=== PATIENT | male | born 1975 | race Caucasian/White ===

== ENCOUNTER 2020-06-13 10:29 | Emergency (ER) | payer OTHER, SELFPAY ==
[2020-06-13 10:35] VITALS: BP 139/73; PULSE 70; RESP 18; TEMP 36.7; O2SAT 95
[2020-06-13 11:21] LABS: Bilirubin Negative (Negative); Blood Negative (Negative); Clarity Clear (Clear); Glucose Negative (Negative); Ketones Negative (Negative); Leukocyte Esterase Negative (Negative); Nitrite Negative (Negative); Urobilinogen 0.2 EU/dL (Up TO 0.2); pH 7.5 (5-8)
--- NOTE | 2020-06-13 11:45 | DI.CT_ITS ---
EXAM: CT ABDOMEN PELVIS W CLINICAL HISTORY: Right inguinal pain, mass. TECHNIQUE: Imaging Protocol: Axial computed tomography images with coronal and sagittal reformatted images were created and reviewed CONTRAST MATERIAL: Intravenous: Omnipaque 350 Contrast volume:100cc Oral: / no COMPARISON: No exams were available for comparison FINDINGS: ABDOMEN: Lung Bases: Normal where visualized. Liver: Normal density. No measurable mass. Gallbladder and biliary tract: No radiodense calculus or dilation. Pancreas: Normal density, no abnormal calcifications or inflammatory process. Spleen: Normal. Kidneys: Normal size, contour and axis. No radiodense stones or obstructive uropathy. No masses seen. Adrenal glands: No masses seen. Abdominal Aorta: Abdominal portion non-dilated. PELVIS: Bladder: Symmetric distention, no gross wall thickening. Bowel: No obstruction or bowel wall thickening. Increased quantity of stool. Normal appendix. Peritoneal cavity: No ascites, collection or mesenteric inflammatory response. Bones: Within normal limits. Reproductive organs: Within normal limits. Lymph nodes: Unremarkable. Soft tissues: Minimally increased density within the fat in the right inguinal region could be inflam matory. No evidence of adenopathy, mass or hernia. Impression: Unremarkable CT scan of the abdomen and pelvis. No evidence of inguinal hernia, mass or adenopathy. RADIATION DOSE DELIVERED: 795.94mGy.cm Total DLP DATA REPOSITORY: All CT scans at this facility are submitted to the National Radiology Data Registry (NRDR) Dose Index Registry (DIR) with the [employer] (A[employer]). RADIATION OPTIMIZATION: All CT scans at this facility use at least one of these dose optimization te chniques: automated exposure control; mA and/or kV adjustment per patient size (includes targeted exa ms where dose is matched to clinical indication); or iterative reconstruction.
[2020-06-13 12:19] LABS: Abs Immature Grans 0.03 10^3/uL (0.0-0.06); Absolute Basophil Count 0.02 10^3/uL (0.0-0.2); Absolute Eosinophil Count 0.18 10^3/uL (0.0-0.7); Absolute Lymphocyte Count 1.91 10^3/uL (1.2-3.4); Absolute Monocyte Count 1.08 10^3/uL (0.1-0.8); Absolute Neutrophil Count 5.33 10^3/uL (1.2-6.7); Basophils % 0.2; Eosinophils % 2.1; HCT 43.3 % (40.0-50.0); Immature Grans % 0.4; Lymphocytes % 22.3; MCH 32.5 pg (27.0-33.0); MCHC 34.6 % (32.0-36.0); MCV 93.9 fL (80-95); MPV 9.8 fL (8.0-11.0); Monocytes % 12.6; Neutrophils % 62.4; Nucleated RBC 0 %; Platelet Count 198 10^3/uL (130-400); RBC 4.61 10^6/uL (4.36-5.78); RDW 11.9 % (11.8-14.1); WBC 8.55 10^3/uL (4.4-10.8)
[2020-06-13 12:36] LABS: ALT 41 U/L (16-63); AST 20 U/L (15-37); Albumin 3.9 g/dL (3.4-5.0); Alkaline Phosphatase 70 U/L (46-116); Anion Gap 6.5 mmol/L (3-11); BUN 13 mg/dL (7-18); Bilirubin, Total 1.2 mg/dL (0.2-1.0); CO2 28.5 mmol/L (21.0-32.0); CREATININE 1.15 mg/dL (0.70-1.30); Calcium 8.7 mg/dL (8.5-10.1); Chloride 103 mmol/L (98-107); Glucose 97 mg/dL (74-106); Lipase 113 U/L (73-393); Sodium 138 mmol/L (136-145); Total Protein 7.6 g/dL (6.4-8.2)
--- NOTE | 2020-06-13 12:52 | ED.GENADUL_ITS ---
Discharge Plan Disposition Patient Disposition: HOME Condition: Stable Discharge Details Clinical Impression: Rt groin pain Primary Care Provider: None,None ED Provider: Hemal Ramos Home Meds and New Rx's Prescriptions: New amoxicillin-pot clavulanate [Augmentin] 875-125 mg tablet 1 tab PO Q12H Qty: 20 RF: 0 No Action One Daily Multi-Vit w-Mineral 4.5 mg iron tablet PO DAILY RF: 0 cholecalciferol (vitamin D3) 50 mcg (2,000 unit) capsule 50 mcg PO DAILY RF: 0 Discharge Instructions Instructions: Groin Pain (ED) Additional Instructions: At the moment it is unclear exactly where her discomfort is coming from. This could be a small hernia, small localized infection, musculoskeletal injury, etc. Augmentin as directed. Cool and/or warm compresses every 2 hours for 20 days. Gentle stretching as tolerated. We discussed signs and symptoms of a strangulated hernia and the importance of returning immediately to the ER. I have placed you on the list to get you set up for an ultrasound on Monday, they will contact you Monday morning to set a time. Otherwise I am also giving you the name and number of our local surgical team who I strongly recommend you call Monday for prompt outpatient reevaluation. Again, please watch for new or worsening symptoms and return immediately to the ER. Referrals: Vivi Yuen DO [OSTEOPATHIC DOCTOR] - Discharge Data Discharge Date/Time-TO BE ENTERED AT DEPARTURE: 06/13/20 15:13 Medical Decision Making 45-year-old gentleman reports right groin discomfort for approximately 1 week. He states the pain is worse with certain movements, coughing, sneezing, etc. He states it began when he was aggressively stretching but denies any obvious injury. He denies true abdominal pain, nausea, vomiting, change in bowel or bladder function, back pain, penile pain or discharge, testicle pain. Clinically he appears well, nontoxic. He admits to a 25 pound weight loss over 1 year but this was intentional secondary to better life choices. He states that he is typically sweaty at night but may be slightly more sweaty over the past few nights. Clinically he does have some discomfort externally in the right groin, and has discomfort-fullness upon the scrotal exam of the right inguinal canal. Difficult to say if this is truly a [id number]. Clinically he appears well, nontoxic, no acute distress. Abdomen is benign. Back is benign. Penis, testicles unremarkable. Given this all began while stretching, it certainly could be musculoskeletal but given my exam findings, his increased night sweats over the past few days, would like to obtain IV access and imaging. Laboratory values reveal a white blood cell count of 8.55 hemoglobin 15 hematocrit 43.3 platelet count 198. Electrolytes are unremarkable. BUN 13 creatinine 1.15 with a GFR greater than 60. Bilirubin 1.2 LFTs unremarkable. Urinalysis unremarkable. CT imaging of abdomen and pelvis with contrast is read by virtual radiology as no acute intra-abdominal abnormality. No inguinal hernia is identified. There is minimal stranding noted in the right inguinal region which could be reactive due to rubbing or mild cellulitis. No abnormal fluid collection. Discussed findings with Dr. Negrete. Given the nonspecific findings on the CT, will initiate Augmentin therapy for potential adenitis. We will set the patient up for ultrasound on Monday of the scrotum and groin as well as place him on the surgical callback list and have him contact their office on Monday for prompt outpatient reevaluation. We discussed the importance of watching for new or worsening symptoms and returning immediately, otherwise outpatient follow-up, contacting surgery and his primary care provider on Monday. He will be contacted on Monday for the ultrasound just at bedtime. Patient comfortable plan and has no additional questions or concerns. He does understand this very well may be muscular but given the uncertainty of the CT, night sweats, cannot stress the importance of proper outpatient evaluation. Lab Data Lab results reviewed: Yes I reviewed the patient's lab results. Lab results narrative: Laboratory Tests Range/Units 06/13/20 06/13/20 06/13/20 11:16 12:12 12:12 WBC (4.4-10.8) 10^3/uL 8.55 RBC (4.36-5.78) 10^6/uL 4.61 Hgb (13.5-17.5) g/dL 15.0 Hct (40.0-50.0) % 43.3 MCV (80-95) fL 93.9 MCH (27.0-33.0) pg 32.5 MCHC (32.0-36.0) % 34.6 RDW (11.8-14.1) % 11.9 Plt Count (130-400) 10^3/uL 198 MPV (8.0-11.0) fL 9.8 Immature Gran % 0.4 Neutrophils % 62.4 Lymphocytes % 22.3 Monocytes % 12.6 Eosinophils % 2.1 Basophils % 0.2 Nucleated RBC % % 0 Absolute Neutrophils (1.2-6.7) 10^3/uL 5.33 Absolute Lymphocytes (1.2-3.4) 10^3/uL 1.91 Absolute Monocytes (0.1-0.8) 10^3/uL 1.08 H Absolute Eosinophils (0.0-0.7) 10^3/uL 0.18 Absolute Basophils (0.0-0.2) 10^3/uL 0.02 Sodium (136-145) mmol/L 138 Potassium (3.5-5.1) mmol/L 4.0 Chloride (98-107) mmol/L 103 Carbon Dioxide (21.0-32.0) mmol/L 28.5 Anion Gap (3-11) mmol/L 6.5 BUN (7-18) mg/dL 13 Creatinine (0.70-1.30) mg/dL 1.15 Estimated GFR/1.73 m2 (mL/min/1.73m2) >= 60.00 Glucose (74-106) mg/dL 97 Calcium (8.5-10.1) mg/dL 8.7 Total Bilirubin (0.2-1.0) mg/dL 1.2 H AST (15-37) U/L 20 ALT (16-63) U/L 41 Alkaline Phosphatase (46-116) U/L 70 Total Protein (6.4-8.2) g/dL 7.6 Albumin (3.4-5.0) g/dL 3.9 Lipase (73-393) U/L 113 Urine Color (Yellow) Yellow Urine Clarity (Clear) Clear Urine pH (5-8) 7.5 Ur Specific Vance (1.005-1.025) 1.020 Urine Protein (Negative) mg/dL Negative Urine Ketones (Negative) mg/dL Negative Urine Blood (Negative) Negative Urine Nitrite (Negative) Negative Urine Bilirubin (Negative) Negative Urine Urobilinogen (Up TO 0.2) EU/dL 0.2 Ur Leukocyte Esterase (Negative) Negative Urine Glucose (Negative) mg/dL Negative HPI General Mode of arrival: ambulatory . Date/Time Provider Initiated Documentation: 06/13/20 11:02 . Limitations to Documentation: no limitations . Information obtained by: patient . HPI Narrative: 45-year-old gentleman, denies other significant past medical history, presents to the ER reporting right sided groin pain-swelling for approximately 1 week. This all began after an intense stretching session. He states the pain is worse with movement, coughing, sneezing, etc. He denies recent travel, sick contacts, bad food exposure. He denies nausea, vomiting, diarrhea, fever, pain in his back, dysuria, hematuria, pain or swelling in his testicles. Denies dysuria or hematuria. He states over the past couple of nights he may have been slightly more sweaty sleeping than usual. He has not felt warm during the day. He also states that over the past year or so he has lost 25 pounds but this has been a conscious decision and better life choices. He denies any radiation down his leg, numbness, tingling, weakness. Related Data Home Medications Medication Instructions Recorded Confirmed amoxicillin-pot clavulanate 1 tab PO Q12H #20 tab 06/13/20 06/15/20 [Augmentin] cholecalciferol (vitamin D3) 50 50 mcg PO DAILY 06/15/20 06/15/20 mcg (2,000 unit) capsule multivitamin with minerals-ferrous tab PO DAILY tab 06/15/20 06/15/20 sulfate 4.5 mg iron tablet Previous Rx's Medication Instructions Recorded amoxicillin-pot clavulanate 1 tab PO Q12H #20 tab 06/13/20 [Augmentin] Allergies Allergy/AdvReac Type Severity Reaction Status Date / Time No Known Allergies Allergy Unverified 06/15/20 11:13 General Stated Complaint: Abd Prob BRITTANY: 3 Review of Systems Constitutional Constitutional: Denies fatigue, Denies fever(s), Reports night sweats and Denies weakness Cardiovascular Cardiovascular: Denies chest pain and Denies dyspnea Respiratory Respiratory: Denies cough and Denies dyspnea Gastrointestinal Gastrointestinal: Reports abdominal pain (Suprapubic, right groin), Denies change in bowel habits, Denies constipation, Denies diarrhea, Denies nausea and Denies vomiting Genitourinary Genitourinary: Denies hematuria, Denies genital pain, Denies dysuria, Denies penile discharge, Denies scrotal swelling, Denies testicular mass and Denies testicular pain Musculoskeletal Musculoskeletal: Denies back pain, Denies numbness and Denies tingling Integumentary/Breasts Skin/Breast: Denies rash Neurologic Neurologic: Denies numbness, Denies tingling and Denies weakness Endocrine Endocrine: Denies fatigue [facility] Social History Smoking/Tobacco Use Status: Never Smoking risk assessment performed?: Yes Alcohol Intake: current Alcohol Intake frequency: 0-2 drinks per day Drug use: Never Current gender identity: male Do you feel safe at home: Yes Do you feel safe in your relationship?: Yes Exam Const General: cooperative, healthy appearing, comfortable and no acute distress Orientation: alert and awake HENMS Head: normal to inspection, normocephalic and atraumatic Eyes General: appearance normal, both eyes and all related structures Conjunctivae: conjunctivae normal Sclera: sclerae normal Neck Neck: normal visual inspection, full ROM, no meningeal signs, trachea midline and supple Resp Effort & Inspection: normal respiratory effort and able to speak in complete sentences Auscultation: clear to auscultation bilaterally Cardio Rate: regular rate Rhythm: regular rhythm GI Inspection: normal to inspection Palpation: soft, not firm, no guarding, no hernias, no masses, no pulsatile masses and nontender Auscultation: normal bowel sounds Male General Exam: Yes normal external exam and Yes tenderness (Diffuse mild discomfort right groin) Penis: normal penis Meatus: meatus normal Scrotum: cremasteric reflex present, no ecchymosis, not erythematous, no inguinal hernias, no scrotal swelling and other (Right inguinal canal discomfort-fullness. ) Testes: normal Back/Spine/Pelvis Back: no CVA tenderness and No back tenderness Skin General skin exam: no rashes or lesions noted Neuro General: patient alert, patient awake, moves all extremities and no focal motor deficits Cognition: normal cognition Speech: speech normal Gait: normal gait Motor: muscle tone normal throughout Sensory Exam: no sensory deficits noted Extrem General: normal to inspection, full ROM, no pedal edema and no calf tenderness Psych Appearance: grossly normal Mental Status: mental status grossly normal Course Vital Signs Vital signs: Vital Signs Temperature 36.7 C 06/13/20 10:35 Pulse 70 12/26/20 10:35 Respiratory Rate 18 06/13/20 10:35 Blood Pressure 139/73 06/13/20 10:35 Pulse Oximetry 95 06/13/20 10:35 Temperature 36.7 C 06/13/20 10:35 Temperature Source Skin 06/13/20 10:35 Pulse 70 06/13/20 10:35 Respiratory Rate 18 06/13/20 10:35 Respiratory Effort 06/13/20 10:39 Blood Pressure 139/73 06/13/20 10:35 Blood Pressure Position Supine 06/13/20 10:35 Pulse Oximetry 95 06/13/20 10:35 Oxygen Delivery Method Room Air 06/13/20 10:35 Oxygen Flow Rate 0 06/13/20 10:35 Pain Level 7 06/13/20 11:26 Lab/Test Results Lab/Test Results: Laboratory Tests Range/Units 06/13/20 06/13/20 06/13/20 11:16 12:12 12:12 WBC (4.4-10.8) 10^3/uL 8.55 RBC (4.36-5.78) 10^6/uL 4.61 Hgb (13.5-17.5) g/dL 15.0 Hct (40.0-50.0) % 43.3 MCV (80-95) fL 93.9 MCH (27.0-33.0) pg 32.5 MCHC (32.0-36.0) % 34.6 RDW (11.8-14.1) % 11.9 Plt Count (130-400) 10^3/uL 198 MPV (8.0-11.0) fL 9.8 Immature Gran % 0.4 Neutrophils % 62.4 Lymphocytes % 22.3 Monocytes % 12.6 Eosinophils % 2.1 Basophils % 0.2 Nucleated RBC % % 0 Absolute Neutrophils (1.2-6.7) 10^3/uL 5.33 Absolute Lymphocytes (1.2-3.4) 10^3/uL 1.91 Absolute Monocytes (0.1-0.8) 10^3/uL 1.08 H Absolute Eosinophils (0.0-0.7) 10^3/uL 0.18 Absolute Basophils (0.0-0.2) 10^3/uL 0.02 Sodium (136-145) mmol/L 138 Potassium (3.5-5.1) mmol/L 4.0 Chloride (98-107) mmol/L 103 Carbon Dioxide (21.0-32.0) mmol/L 28.5 Anion Gap (3-11) mmol/L 6.5 BUN (7-18) mg/dL 13 Creatinine (0.70-1.30) mg/dL 1.15 Estimated GFR/1.73 m2 (mL/min/1.73m2) >= 60.00 Glucose (74-106) mg/dL 97 Calcium (8.5-10.1) mg/dL 8.7 Total Bilirubin (0.2-1.0) mg/dL 1.2 H AST (15-37) U/L 20 ALT (16-63) U/L 41 Alkaline Phosphatase (46-116) U/L 70 Total Protein (6.4-8.2) g/dL 7.6 Albumin (3.4-5.0) g/dL 3.9 Lipase (73-393) U/L 113 Urine Color (Yellow) Yellow Urine Clarity (Clear) Clear Urine pH (5-8) 7.5 Ur Specific Vance (1.005-1.025) 1.020 Urine Protein (Negative) mg/dL Negative Urine Ketones (Negative) mg/dL Negative Urine Blood (Negative) Negative Urine Nitrite (Negative) Negative Urine Bilirubin (Negative) Negative Urine Urobilinogen (Up TO 0.2) EU/dL 0.2 Ur Leukocyte Esterase (Negative) Negative Urine Glucose (Negative) mg/dL Negative
[2020-06-13] MEDS: Omnipaque 350 MG/ML 100 ML BTL IJ (13:26)
--- NOTE | 2020-06-13 13:58 | DI.VRAD_ITS ---
PROCEDURE INFORMATION: Exam: CT Abdomen And Pelvis With Contrast Exam date and time: 06/13/2020 11:57 AM Age: 45 years old Clinical indication: Abdominal pain; Patient HX: Right inguinal pain, ? hernia TECHNIQUE: Imaging protocol: Computed tomography of the abdomen and pelvis with intravenous contrast. COMPARISON: No relevant prior studies available. FINDINGS: Liver: Normal. No mass. Gallbladder and bile ducts: Normal. No calcified stones. No ductal dilation. Pancreas: Normal. No ductal dilation. Spleen: Normal. No splenomegaly. Adrenal glands: Normal. No mass. Kidneys and ureters: Normal. No hydronephrosis. Stomach and bowel: There is mild stool volume in the colon. Appendix: No evidence of appendicitis. Intraperitoneal space: Unremarkable. No free air. No significant fluid collection. Vasculature: Unremarkable. No abdominal aortic aneurysm. Lymph nodes: Unremarkable. No enlarged lymph nodes. Urinary bladder: Unremarkable as visualized. Reproductive: Unremarkable as visualized. Bones/joints: Unremarkable. No acute fracture. Soft tissues: There is no hernia identified in the inguinal region. There is minimal asymmetric stranding noted in the right inguinal region which could be reactive due to rubbing or mild inflammation. IMPRESSION: 1. No acute intra-abdominal abnormality. 2. No inguinal hernia is identified. There is minimal stranding noted in the right inguinal region which could be reactive due to rubbing or mild cellulitis. No abnormal fluid collection. Dictated and Authenticated by: Oneil Reinoso MD. Ordering:KATIA Recio MD
[2020-06-13 14:32] VITALS: BP 135/84; PULSE 64; RESP 15; TEMP 36.7; O2SAT 98
[2020-06-13 15:11] VITALS: BP 127/76; PULSE 70; RESP 16; TEMP 37.1; O2SAT 96
== END 2020-06-13 15:13 | disposition home or self-care (01) ==
PROVIDERS: Emergency Provider Physician Assistant
DX: R10.30 Lower abdominal pain, unspecified (principal)
CPT/HCPCS: 80053; 83690; 99285; 74177; 81003; 85025; 99284; J3490

== ENCOUNTER 2020-06-15 15:16 | Outpatient (CLI) | payer OTHER, SELFPAY ==
--- NOTE | 2020-06-15 | DI.US_ITS ---
EXAM: US SCROTUM CLINICAL HISTORY: RT GROIN PAIN TECHNIQUE: Ultrasound of the testes performed using grayscale, color, and Doppler imaging. COMPARISON: No exams were available for comparison FINDINGS: RIGHT HEMISCROTUM: The right testicle exhibits normal size and echo architecture with no evidence of intratesticular mas s. Vascular flow was demonstrated within the right testicle, including arterial waveforms. The epididymis appears unremarkable. There are no epididymal head cysts. There is no ipsilateral hydrocele nor varicocele. LEFT HEMISCROTUM: The left testicle exhibits normal size and echo architecture with no evidence of intratesticular mass . Vascular flow is demonstrated within the left testicle, including arterial waveforms. The epididymis appears unremarkable. There are no epididymal head cysts. There is no ipsilateral hydrocele or varicocele. Imaging of right groin-right lower quadrant anterior abdominal wall was performed both without and wi th Valsalva maneuvers and did not reveal evidence of an obvious hernia. IMPRESSION: 1. No evidence of testicular mass nor testicular torsion. 2. No hydroceles evident. 3. No varicoceles evident 4. No evidence of obvious right groin hernia. DATA REPOSITORY:
== END 2020-06-15 15:36 ==
PROVIDERS: PCP Family Medicine; Visit Provider Physician Assistant
DX: R10.31 Right lower quadrant pain (principal)
CPT/HCPCS: 76870

== ENCOUNTER 2024-05-20 17:05 | Outpatient (REF) | payer OTHER, SELFPAY ==
[2024-05-20 21:30] LABS: ALT 30 U/L (16-63); AST 23 U/L (15-37); Albumin 4.1 g/dL (3.4-5.0); Alkaline Phosphatase 96 U/L (46-116); Anion Gap 10.7 mmol/L (3-11); BUN 21 mg/dL (7-18); Bilirubin, Total 0.73 mg/dL (0.2-1.0); CO2 27.3 mmol/L (21.0-32.0); CREATININE 1.3 mg/dL (0.70-1.30); Calculated LDL 109 mg/dL (<100); Chloride 101 mmol/L (98-107); Cholesterol 241 mg/dL (<200); Estimated GFR 67.34 (mL/min/1.73m2); Glucose 97 mg/dL (74-106); HDL Cholesterol 69 mg/dL (40-60); Potassium 4.4 mmol/L (3.5-5.1); Sodium 139 mmol/L (136-145); Total Protein 7.9 g/dL (6.4-8.2); Triglyceride 319 mg/dL (<150)
[2024-05-21 22:37] LABS: HIV-1/2 Ag & Ab Screen Negative (Negative)
[2024-05-21 22:41] LABS: PSA, Screening 0.8 ng/mL (<=2.5)
[2024-05-21 23:23] LABS: Hepatitis C Ab w Rflx HCV PCR Negative (Negative)
== END 2024-05-20 17:06 | disposition home or self-care (01) ==
LOC: NCHCN 17:05
PROVIDERS: PCP Nurse Practitioner Family; Visit Provider Nurse Practitioner Family
DX: Z00.00 Encounter for general adult medical examination without abnormal findings (principal)
CPT/HCPCS: 80053; 80061; 84153; 86803; 87389

== ENCOUNTER 2024-11-16 11:12 | Emergency (ER) | payer OTHER, SELFPAY ==
[2024-11-16] VITALS (13 sets, daily range): BP systolic 138–160; BP diastolic 83–96; PULSE 59–80; RESP 7–16; TEMP 36.8; O2SAT 95–99
--- NOTE | 2024-11-16 11:00 | RT.EKG_ITS ---
APPROVED REPORT Exam: Resting ECG Reason for Exam: Chest Pain Patient Location: E HR:69 bpm ECG Measurements Heart Rate 69 AXIS GA 147 P 61 QRSd 90 QRS 73 QT 367 T 63 QTc 395 Conclusion Sinus rhythm, rate 69 No interval abnormalities No STEMI No priors available for comparison
--- NOTE | 2024-11-16 11:25 | W.ED.GENAD ---
Discharge Plan Disposition Patient Disposition: Home Condition: Stable Discharge Details Clinical Impression: Chest pain Primary Care Provider: SHANNON QUIJANO ED Provider: Bhargavi Newsome Home Meds and New Rx's Prescriptions: No Action One Daily Multi-Vit w-Mineral 4.5 mg iron tablet 1 tab PO DAILY cholecalciferol (vitamin D3) 50 mcg (2,000 unit) capsule 50 mcg PO DAILY finasteride 1 mg tablet 1 mg PO DAILY Patient Comments: TAKE 1 TABLET BY MOUTH EVERY DAY DIRECTED Discharge Instructions Instructions: Troponin Test, Chest Pain, Adult ED Additional Instructions: At this time your cardiac workup is within normal limits. No evidence of pneumonia or blood clot in your lung. An outpatient ultrasound of your left lower extremity was ordered. Call the number on top of the form to schedule an appointment to have that done. Follow up with primary care provider to discuss further workup such as a stress test or similar, in 3-5 days. Return to ED sooner if any worsening chest pain, shortness of breath dizziness, lightheadedness, or concerns. Thank you for allowing us to care for you today. Referrals: SHANNON QUIJANO, [employer] [Primary Care Provider] - 3 days HPI General Mode of arrival: ambulatory. Date/Time Provider Initiated Documentation: 11/16/24 11:14. Limitations to Documentation: no limitations. Information obtained by: patient, RN notes reviewed and old records reviewed. HPI Narrative: 49-year-old male presents to the ER with a chief complaint of left-sided chest pain which he describes as like a bubble began around 2 AM in the morning woke him up out of sleep. He also reports small pain in his left arm which is when he decided that he needed to come into the emergency department. He also describes small amount of shortness of breath and cough from a recent URI, some dizziness denies any nausea vomiting diarrhea. He does have a history of some anxiety and is feeling anxious. He is a non-smoker, no significant family cardiac history. He does take vitamins and just recently started finasteride. He states his pain is a 2 out of 10. He states that the pain does not change with activity. Related Data Home Medications ?Medication ?Instructions ?Recorded ?Confirmed cholecalciferol (vitamin D3) 50 50 mcg PO DAILY 06/15/20 11/16/24 mcg (2,000 unit) capsule multivitamin with minerals-ferrous 1 tab PO DAILY 06/15/20 11/16/24 sulfate 4.5 mg iron tablet (One Daily Multivitamins with Minerals) finasteride 1 mg tablet 1 mg PO DAILY 11/16/24 11/16/24 Allergies Allergy/AdvReac Type Severity Reaction Status Date / Time No Known Allergies Allergy Verified 11/16/24 11:24 General Stated Complaint: Chest Pain BRITTANY: 3 Review of Systems All systems reviewed & are unremarkable except as noted in HPI and below Cardiovascular Cardiovascular: Reports as per HPI, Reports chest pain, Reports radiating jaw, neck or arm pain and Reports dyspnea Respiratory Respiratory: Reports dyspnea Exam Narrative Exam Narrative: Constitutional: Alert and oriented x3. Appears stated age. Normal body habitus. Head: Normocephalic, no trauma. Eyes: Pupils PERRL, Red reflex noted, EOM's intact. Eyelids symmetrical without lesions, discharge, or swelling. ENT: Bilateral TM's WNL, External ear normal to inspection, no mastoid TTP, swelling, or erythema, Nasal turbinates WNL, no nasal discharge. Normal dentition, Posterior pharynx WNL, no exudate. Chest: RRR, Normal S1, S2, distal pulses intact. Resp: Lungs clear to auscultation bilaterally, no wheezes, rales, or rhonchi. Abdomen: Soft, non-distended, Normoactive bowel sounds all 4 quads. Musculoskeletal: Normal gait, Moves all 4 extremities without difficulty. Skin: No suspicious rashes or lesions. Capillary refill less than 2 sec. Neurologic: Cranial nerves II-XII intact. Alert and oriented x 3. Motor: No deficits noted. Sensory: Intact bilaterally all 4 extremities. Hematologic/Lymphatic: No ecchymosis, no lymphadenopathy. Course Vital Signs Vital signs: Vital Signs Temperature 36.8 C 11/16/24 11:16 Pulse 75 11/16/24 11:16 Respiratory Rate 16 11/16/24 11:16 Blood Pressure 160/96 H 11/16/24 11:16 Pulse Oximetry 98 11/16/24 11:16 Temperature 36.8 C 11/16/24 11:16 Temperature Source Oral 11/16/24 11:16 Pulse 75 11/16/24 11:16 Respiratory Rate 16 11/16/24 11:16 Blood Pressure 160/96 H 11/16/24 11:16 Blood Pressure Position Sitting 11/16/24 11:16 Pulse Oximetry 98 11/16/24 11:16 Oxygen Delivery Method Room Air 11/16/24 11:16 Oxygen Flow Rate 0 11/16/24 11:16 Pain Level 2 11/16/24 11:16 Medical Decision Making 49-year-old male presents to the ER with a chief complaint of left-sided chest pain which he describes as like a bubble began around 2 AM in the morning woke him up out of sleep. He also reports small pain in his left arm which is when he decided that he needed to come into the emergency department. He also describes small amount of shortness of breath and cough from a recent URI, some dizziness denies any nausea vomiting diarrhea. He does have a history of some anxiety and is feeling anxious. He is a non-smoker, no significant family cardiac history. He does take vitamins and just recently started finasteride. He states his pain is a 2 out of 10. He states that the pain does not change with activity. EKG was reviewed by myself and Dr. Melo ER attending, normal sinus rhythm, no old EKG available for review. Cardiac workup ordered including CBC CMP serial troponin D-dimer chest x-ray 324 mg of aspirin. Differential diagnosis includes but not limited to to NSTEMI, CAD, PE, URI, anxiety. Initial troponin within normal limits, D-dimer also negative at 181, CMP largely unremarkable bilirubin slightly elevated at 1.1, chest x-ray within normal limits. Awaiting serial troponin results. GI cocktail ordered. Second troponin within normal limits, initial troponin 5-second troponin is 4 at 1 hour. Discussed results with patient and family who verbalized understanding. They state that approximately 2 weeks ago they were in a 19-hour car trip the patient had left lower extremity swelling and cramping which has since resolved. He does have a family history of DVTs as well. I did discuss an outpatient ultrasound just to be safe and they verbalized understanding. That was ordered. Discussed follow-up care and strict return instructions they verbalized understanding. Medical Records Medical records reviewed: Yes I reviewed the patient's medical records. Imaging Data Radiologic Study: Imaging: X-Ray Radiologist's impression: TECHNIQUE: Imaging protocol: Radiologic exam of the chest. Views: 1 view. COMPARISON: CT ABDOMEN PELVIS W 06/13/2020 1:30 PM FINDINGS: Lungs: Unremarkable. No consolidation. Pleural spaces: Unremarkable. No pleural effusion. No pneumothorax. Heart/Mediastinum: Unremarkable. No cardiomegaly. Bones/joints: Unremarkable. IMPRESSION: No acute findings. Thank you for allowing us to participate in the care of your patient. Dictated and Authenticated by: Joaquin Rucker MD Lab Data Lab results reviewed: Yes I reviewed the patient's lab results. Labs: Laboratory Tests Range/Units 11/16/24 11/16/24 11/16/24 11:17 12:20 14:16 WBC (4.4-10.8) 10^3/uL 5.91 RBC (4.36-5.78) 10^6/uL 4.66 Hgb (13.5-17.5) g/dL 15.0 Hct (40.0-50.0) % 42.8 MCV (80-95) fL 92 MCH (27.0-33.0) pg 32.2 MCHC (32.0-36.0) % 35.0 RDW (11.8-14.1) % 11.9 Plt Count (130-400) 10^3/uL 197 MPV (8.0-11.0) fL 9.1 Immature Gran % % 0.2 Neutrophils % % 47.9 Lymphocytes % % 35.0 Monocytes % % 12.5 Eosinophils % % 4.1 Basophils % % 0.3 Nucleated RBC % (0.0-0.3) % 0.0 Absolute Neutrophils (1.2-6.7) 10^3/uL 2.83 Absolute Lymphocytes (1.2-3.4) 10^3/uL 2.07 Absolute Monocytes (0.1-0.8) 10^3/uL 0.74 Absolute Eosinophils (0.0-0.7) 10^3/uL 0.24 Absolute Basophils (0.0-0.2) 10^3/uL 0.02 D-Dimer (<500) ng/mlFEU 181 Sodium (136-145) mmol/L 137 Potassium (3.5-5.1) mmol/L 4.7 Chloride (98-107) mmol/L 102 Carbon Dioxide (21.0-32.0) mmol/L 29.1 Anion Gap (3-11) mmol/L 5.9 BUN (7-18) mg/dL 16 Creatinine (0.70-1.30) mg/dL 0.9 Est GFR (CKD-EPI 2020) (mL/min/1.73m2) 104.05 Glucose (74-106) mg/dL 87 Calcium (8.5-10.1) mg/dL 9.3 Total Bilirubin (0.2-1.0) mg/dL 1.1 H AST (15-37) U/L 18 ALT (16-63) U/L 24 Alkaline Phosphatase (46-116) U/L 87 Troponin I (<or=76) ng/L 5 4 Cancelled Total Protein (6.4-8.2) g/dL 7.9 Albumin (3.4-5.0) g/dL 3.9 Quality:SDOH Health Related Social Needs: No Data to Display PFSH All Active Problems (Updated 11/16/24 @ 13:18 by Bhargavi Newsome NP) Chest pain (Acute) Social History Smoking/Tobacco Use Status: Never Smoking risk assessment performed?: Yes Alcohol Intake: current Alcohol Intake frequency: 0-2 drinks per day Drug use: Never Housing: house Current gender identity: male Do you feel safe at home: Yes Do you feel safe in your relationship?: Yes
[2024-11-16 11:26] LABS: Abs Immature Grans 0.01 10^3/uL (0.0-0.06); Absolute Basophil Count 0.02 10^3/uL (0.0-0.2); Absolute Eosinophil Count 0.24 10^3/uL (0.0-0.7); Absolute Lymphocyte Count 2.07 10^3/uL (1.2-3.4); Absolute Monocyte Count 0.74 10^3/uL (0.1-0.8); Absolute Neutrophil Count 2.83 10^3/uL (1.2-6.7); Basophils % 0.3 %; Eosinophils % 4.1 %; HCT 42.8 % (40.0-50.0); Immature Grans % 0.2 %; MCH 32.2 pg (27.0-33.0); MCV 92 fL (80-95); MPV 9.1 fL (8.0-11.0); Monocytes % 12.5 %; Neutrophils % 47.9 %; Platelet Count 197 10^3/uL (130-400); RBC 4.66 10^6/uL (4.36-5.78); RDW 11.9 % (11.8-14.1); WBC 5.91 10^3/uL (4.4-10.8)
[2024-11-16] MEDS: Aspirin 81 MG CHEW 324 MG CH (11:37)
[2024-11-16 11:49] LABS: ALT 24 U/L (16-63); AST 18 U/L (15-37); Albumin 3.9 g/dL (3.4-5.0); Alkaline Phosphatase 87 U/L (46-116); Anion Gap 5.9 mmol/L (3-11); BUN 16 mg/dL (7-18); Bilirubin, Total 1.1 mg/dL (0.2-1.0); CO2 29.1 mmol/L (21.0-32.0); CREATININE 0.9 mg/dL (0.70-1.30); Calcium 9.3 mg/dL (8.5-10.1); Chloride 102 mmol/L (98-107); Estimated GFR 104.05 (mL/min/1.73m2); Glucose 87 mg/dL (74-106); Potassium 4.7 mmol/L (3.5-5.1); Sodium 137 mmol/L (136-145); Total Protein 7.9 g/dL (6.4-8.2); Troponin I 5 ng/L (<or=76)
--- NOTE | 2024-11-16 11:49 | DI.RAD_ITS ---
Exam(s) XR PORTABLE CHEST AP EXAM: XR PORTABLE CHEST AP CLINICAL HISTORY: Chest pain. TECHNIQUE: 2D digital imaging was performed. COMPARISON: No exams were available for comparison FINDINGS: Single AP portable view. Heart size is upper normal. The mediastinum is not widened. Lungs are clear. No infiltrates nor obvious pleural effusions. IMPRESSION: No acute pulmonary findings on this single AP portable view of the chest. DATA REPOSITORY: RADIATION DOSE DELIVERED:
[2024-11-16 11:54] LABS: D-Dimer 181 ng/mlFEU (<500)
[2024-11-16] MEDS: Mylanta Suspension 30 ML CUP (12:31)
[2024-11-16] MEDS: Lidocaine 2% Viscous 15 ML CUP (12:31)
[2024-11-16 12:55] LABS: Troponin I 4 ng/L (<or=76)
[2024-11-16 13:05] LABS: Lab Add On Test DONE
[2024-11-16 13:12] LABS: Lipase 30 U/L (<78)
--- NOTE | 2024-12-02 11:36 | NUR.NOTE ---
[facility] called stating that they had made 3 attempts to get in touch with the patient to schedule an US extremity with no success. They will now close out the order. Provider notified. Nursing Note:
== END 2024-11-16 13:25 | disposition home or self-care (01) ==
LOC: ER 13:28
PROVIDERS: Emergency Provider Registered Nurse Emergency; PCP Nurse Practitioner Family
DX: R07.9 Chest pain, unspecified (principal)
CPT/HCPCS: 99283; 99284; 36415; 80053; 83690; 93005; 71045; 84484; 85025; 85379; 93010